=== PATIENT | male | born 1940 | race Asian ===

== ENCOUNTER 2018-06-25 12:31 | Outpatient (CLI) | payer MEDICARE ==
[2018-06-25 13:37] LABS: BASOPHILS # (AUTO) 0.03 x10^3/uL (0-0.1); BASOPHILS % (AUTO) 1 % (0-1); EOSINOPHILS # (AUTO) 0.45 x10^3/uL (0-0.4); EOSINOPHILS % (AUTO) 9 % (1-7); LYMPHOCYTES # (AUTO) 1.29 x10^3/uL (1-3.4); LYMPHOCYTES % (AUTO) 25 % (22-44); MD NO; MEAN CORPUSCULAR HEMOGLOBIN 31.5 pg (27.5-34.5); MEAN CORPUSCULAR VOLUME 92.6 fL (81-97); MEAN PLATELET VOLUME 8.4 fL (7.4-10.4); MONOCYTES # (AUTO) 0.43 x10^3/uL (0.2-0.8); MONOCYTES % (AUTO) 8 % (2-9); NEUTROPHILS # (AUTO) 2.96 x10^3/uL (1.8-6.8); NEUTROPHILS % (AUTO) 58 % (42-75); PLATELET COUNT 109 x10^3/uL (130-400); RED BLOOD COUNT 4.36 x10^6/uL (4.38-5.82); RED CELL DISTRIBUTION WIDTH 13.6 % (9.4-14.8)
[2018-06-25 13:44] LABS: INTERNATIONAL NORMALIZED RATIO 1.02 (0.93-1.1); PROTHROMBIN TIME 10.7 Seconds (9.6-11.5)
[2018-06-25 13:46] LABS: ALANINE AMINOTRANSFERASE 19 U/L (12-78); ALBUMIN 3.5 g/dL (3.4-5.0); ANION GAP 5 mmol/L (5-15); CHLORIDE 111 mmol/L (98-107); CREATININE 1.65 mg/dL (0.7-1.3)
[2018-06-25 13:48] LABS: ALKALINE PHOSPHATASE 48 U/L (45-117); BILIRUBIN,TOTAL 0.3 mg/dL (0.2-1.0); TOTAL PROTEIN 6.8 g/dL (6.4-8.2)
[2018-06-25] MEDS ORDERED: GLIP5TAB10 PO (14:06)
[2018-06-25] MEDS ORDERED: ENAL20TA PO (14:06)
[2018-06-25] MEDS ORDERED: LATA7.5D EACHEYE (14:06)
[2018-06-25] MEDS ORDERED: CARV12.52 PO (14:06)
[2018-06-25] MEDS ORDERED: LEVO50TA5 PO (14:06)
[2018-06-25] MEDS ORDERED: BACL-19 PO (14:06)
[2018-06-25] MEDS ORDERED: SITA100T PO (14:06)
[2018-06-25] MEDS ORDERED: TAMS-11 PO (14:06)
[2018-06-25] MEDS ORDERED: GABA-826 PO (14:06)
[2018-06-25] MEDS ORDERED: TIMO5DRO28 EACHEYE (14:06)
[2018-06-25] MEDS ORDERED: SIMV20TA3 PO (14:06)
[2018-06-25] MEDS ORDERED: METF500T17 PO (14:06)
[2018-06-25 14:18] LABS: HEMOGLOBIN A1C 7.1 % (4.2-6.3)
== END 2018-06-25 23:59 | disposition home or self-care (01) ==
LOC: STAR 12:31
PROVIDERS: ATTEND Orthopaedic Surgery
DX: Z01.818 Encounter for other preprocedural examination (principal); M17.11 Unilateral primary osteoarthritis, right knee; R94.31 Abnormal electrocardiogram [ECG] [EKG]
CPT/HCPCS: 36415; 80053; 83036; 85025; 85610; 85730; 87081; 87806; 93005; G0475

== ENCOUNTER 2018-07-09 09:20 | Observation (INO) | payer MEDICARE ==
[~2018-07-09] VITALS: Ht 165.1 cm; Wt 67.9 kg
[~2018-07-09 09:20] MED LIST: ACETAMINOPHEN 500 MG TABLET PO ONE; BACL-19 PO; CARV12.52 PO; ENAL20TA PO; EPINEPHRINE 1 MG/ML, 1ML ONE; FENTANYL PF 250 MCG/5ML ONE; GABA-826 PO; GABAPENTIN 300 MG CAPSULE PO ONE; GLIP5TAB10 PO; KETOROLAC 60 MG/2 ML ONE; LACTATED RINGERS 1,000 ML IV SCH; LATA7.5D EACHEYE; LEVO50TA5 PO; METF500T17 PO; ROPIvacaine/PF 0.2%, 20 ML ONE; SIMV20TA3 PO; SITA100T PO; SODIUM CHLORIDE 0.9% 50 ML ONE; TAMS-11 PO; TIMO5DRO28 EACHEYE; TRANEXAMIC ACID 100 MG/ML, 10ML ONE
[2018-07-09] MEDS ORDERED: POLYETHYLENE GLYCOL 17 GM PACKET PO PRN (09:30)
[2018-07-09] MEDS ORDERED: ONDANSETRON 4 MG TABLET PO PRN (09:30)
[2018-07-09] MEDS ORDERED: ONDANSETRON 2MG/ML, 2ML IVPush PRN (09:30)
[2018-07-09] MEDS ORDERED: ACETAMINOPHEN 325 MG TABLET PO SCH (09:30)
[2018-07-09] MEDS ORDERED: SENNA/DOCUSATE TABLET PO PRN (09:30)
[2018-07-09] MEDS ORDERED: PSYLLIUM PACKET PO PRN (09:30)
[2018-07-09] MEDS ORDERED: ALUMINUM/MAG/SIMETHICONE 30 ML UDC PO PRN (09:30)
[2018-07-09] MEDS ORDERED: TRANEXAMIC ACID 1,000 MG in SODIUM CHLORIDE 0.9% 100 ML IVPB ONE (09:30)
[2018-07-09] MEDS ORDERED: ACETAMINOPHEN 325 MG TABLET PO PRN (09:30)
[2018-07-09] MEDS ORDERED: PROMETHAZINE 12.5 MG SUPP PR PRN (09:30)
[2018-07-09] MEDS ORDERED: DIPHENHYDRAMINE 50 MG CAPSULE PO PRN (09:30)
[2018-07-09] MEDS ORDERED: HYDROmorphone 1 MG/ML, 1ML INJ IVPush PRN (09:30)
[2018-07-09] MEDS ORDERED: PROMETHAZINE 25 MG/ML, 1ML IM PRN (09:30)
[2018-07-09] MEDS ORDERED: ACETAMINOPHEN 650 MG/20.3 ML UDC PO PRN ×2 (09:30→12:30)
[2018-07-09] MEDS ORDERED: DIPHENHYDRAMINE 50 MG/ML, 1ML IVPush PRN (09:30)
[2018-07-09] MEDS ORDERED: MAGNESIUM HYDROXIDE 8%, 30ML UDC PO PRN (09:30)
[2018-07-09] MEDS ORDERED: BISACODYL 10 MG SUPP PR PRN (09:30)
[2018-07-09] MEDS ORDERED: SUCCINYLCHOLINE 20 MG/ML, 10ML ONE (09:37)
[2018-07-09] MEDS ORDERED: ONDANSETRON 2MG/ML, 2ML IV PRN (10:00)
[2018-07-09] MEDS ORDERED: PROMETHAZINE 25 MG/ML, 1ML IV PRN (10:00)
[2018-07-09] MEDS ORDERED: FENTANYL PF 100 MCG/2ML IV PRN (10:00)
[2018-07-09] MEDS ORDERED: DIAZEPAM 5 MG/ML, 2ML IVPush PRN (10:00)
[2018-07-09] MEDS ORDERED: hydrALAzine 20 MG/ML, 1ML IV PRN (10:00)
[2018-07-09] MEDS ORDERED: OXYcodone 5 MG/5 ML ORAL.SOL UDC PO PRN (10:00)
[2018-07-09] MEDS ORDERED: ONDANSETRON ODT 8 MG PO PRN (10:00)
[2018-07-09] MEDS ORDERED: LABETALOL 5MG/ML, 20ML IV PRN (10:00)
[2018-07-09] MEDS ORDERED: HYDROmorphone 2 MG/ML, 1ML IVPush PRN (10:00)
[2018-07-09] MEDS ORDERED: CEFAZOLIN 1,000 MG ONE (10:19)
[2018-07-09] MEDS ORDERED: PROPOFOL 10 MG/ML, 20ML ONE (10:19)
[2018-07-09] MEDS ORDERED: ONDANSETRON 2MG/ML, 2ML ONE (10:19)
[2018-07-09] MEDS ORDERED: DEXAMETHASONE 4 MG/ML, 1ML ONE (10:19)
[2018-07-09] MEDS ORDERED: OXYcodone 5 MG/5 ML ORAL.SOL UDC ONE (11:19)
[2018-07-09] MEDS ORDERED: FENTANYL PF 100 MCG/2ML ONE (11:19)
[2018-07-09] MEDS ORDERED: GABAPENTIN MC SCH ×2 (13:30→19:30)
[2018-07-09] MEDS ORDERED: TIMOLOL MC SCH ×2 (13:30→19:30)
[2018-07-09] MEDS: KETOROLAC 30 MG/1 ML IV SCH ×2 (13:58→21:59)
[2018-07-09] MEDS: POTASSIUM CHLORIDE 20 MEQ in D5%-0.45% NACL 1,000 ML IV SCH ×2 (13:58→22:51)
[2018-07-09 14:19] VITALS: BP 119/69
[2018-07-09] MEDS ORDERED: ASPIRIN 81 MG TABLET EC ONE (17:35)
[2018-07-09 17:40] VITALS: BP 141/74
[2018-07-09] MEDS: ASPIRIN 81 MG TABLET EC PO SCH ×2 (17:42→21:00)
[2018-07-09] MEDS: CARVEDILOL 12.5 MG TABLET PO SCH (17:43)
[2018-07-09] MEDS: metFORMIN 500 MG TABLET PO SCH (17:44)
[2018-07-09] MEDS: OXYcodone IR 5MG TABLET PO PRN ×2 (17:45→21:53)
[2018-07-09] MEDS: CEFAZOLIN PMX 1GM/50ML 50 ML IVPB SCH (17:46)
[2018-07-09] MEDS ORDERED: GABAPENTIN 100 MG CAPSULE PO SCH (21:00)
[2018-07-09] MEDS ORDERED: ASPIRIN 81 MG TABLET EC PO SCH (21:00)
[2018-07-09] MEDS ORDERED: TAMSULOSIN 0.4 MG CAP.ER.24H PO SCH (21:00)
[2018-07-09] MEDS ORDERED: SIMVASTATIN 20 MG TABLET PO SCH (21:00)
[2018-07-09] MEDS ORDERED: LATANOPROST OPHTH 0.005%, 2.5ML OP SCH (21:00)
[2018-07-09 21:23] VITALS: BP 113/59
[2018-07-09] MEDS: DOCUSATE 100 MG CAPSULE PO SCH (21:52)
[2018-07-09] MEDS: TIMOLOL OPHTH 0.5%, 5ML EACHEYE SCH (21:54)
[2018-07-10] MEDS: CEFAZOLIN PMX 1GM/50ML 50 ML IVPB SCH (01:17)
[2018-07-10 01:20] VITALS: BP 95/58
[2018-07-10] MEDS: OXYcodone IR 5MG TABLET PO PRN ×2 (01:25→05:29)
[2018-07-10] MEDS ORDERED: LEVOTHYROXINE 50 MCG TABLET PO SCH ×2 (06:00)
[2018-07-10] MEDS ORDERED: DEXAMETHASONE 4 MG/ML, 1ML IVPush ONE (06:00)
[2018-07-10] MEDS: KETOROLAC 30 MG/1 ML IV SCH (06:01)
[2018-07-10] MEDS: CARVEDILOL 12.5 MG TABLET PO SCH (06:02)
[2018-07-10 07:46] VITALS: BP 97/55
[2018-07-10] MEDS: POTASSIUM CHLORIDE 20 MEQ in D5%-0.45% NACL 1,000 ML IV SCH (08:57)
[2018-07-10] MEDS ORDERED: APIXABAN 5 MG TABLET PO SCH (09:00)
[2018-07-10] MEDS ORDERED: BACLOFEN 10 MG TABLET PO SCH (09:00)
[2018-07-10] MEDS ORDERED: LINAGLIPTIN 5 MG TAB PO SCH (09:00)
[2018-07-10] MEDS ORDERED: ENALAPRIL 20MG TABLET PO SCH (09:00)
[2018-07-10] MEDS: DOCUSATE 100 MG CAPSULE PO SCH (09:28)
[2018-07-10] MEDS: metFORMIN 500 MG TABLET PO SCH (09:28)
[2018-07-10] MEDS: ASPIRIN 81 MG TABLET EC PO SCH (09:30)
[2018-07-10] MEDS: TIMOLOL OPHTH 0.5%, 5ML EACHEYE SCH (09:31)
[2018-07-10 12:20] VITALS: BP 102/62
== END 2018-07-10 12:39 | disposition home or self-care (01) ==
LOC: OUT 09:20 → ORIP 09:21 → INTOOBSV 09:21 → OUT 09:56 → 4NOR 12:35 → DCLOUNGE 07-10 12:30
PROVIDERS: ADMIT Orthopaedic Surgery; ATTEND Orthopaedic Surgery
DX: M17.11 Unilateral primary osteoarthritis, right knee (principal); I10 Essential (primary) hypertension; E11.9 Type 2 diabetes mellitus without complications; E78.5 Hyperlipidemia, unspecified; H40.9 Unspecified glaucoma
CPT/HCPCS: 27447; 36415; 73560; 82962; 85014; 85018; 96365; 96366; 96375; 96376; 97116; 97150; 97161; 97165; C1713; C1776; G0378; J0171; J0330; J0690; J1100; J1885; J2405; J2704; J2795; J3010; J3480; J7120